=== PATIENT | male | born 1970 | race Caucasian/White ===

== ENCOUNTER 2022-02-13 01:45 | Inpatient (IN) | payer MEDICAID ==
[~2022-02-13] VITALS: Ht 182.9 cm; Wt 99.4 kg
[2022-02-13 01:55] VITALS: BP_SYST 156
--- NOTE | 2022-02-13 01:55 | NUR ---
Patient triaged and placed in waiting room. VSS and patient appears in no acute distress at this time. Awaiting available bed, and MD notified of need for MSE.
--- NOTE | 2022-02-13 02:53 | NUR ---
Patient to ER bed 8 to gown for evaluation. Side rails up. Report given to JUDIT SIFUENTES(REG).
--- NOTE | 2022-02-13 03:13 | NUR ---
ER AT at bedside examining patient
[2022-02-13] MEDS ORDERED: PIPERACILLIN/TAZO 3.375 GM in D5W 50 ML IV ONE (03:45)
[2022-02-13] MEDS ORDERED: VANCOMYCIN HCL 1,000 MG in D5W 250 ML IV ONE (03:45)
[2022-02-13] MEDS ORDERED: PIPERACILLIN/TAZOBACTAM 3.375 GM/VIAL (ZOSYN) IV ONE (04:22)
[2022-02-13] MEDS ORDERED: VANCOMYCIN HCL 1000 MG/VIAL IV ONE (04:22)
[2022-02-13 04:28] LABS: BASOPHILS # (AUTO) 0.1 K/uL (0.0-0.2); BASOPHILS % (AUTO) 1.1 % (0.0-2.0); EOSINOPHILS # (AUTO) 0.4 K/uL (0.0-0.4); EOSINOPHILS % (AUTO) 3.3 % (0.0-4.0); HEMATOCRIT 33.8 % (36-54); HEMOGLOBIN 11.3 g/dL (14.0-18.0); LYMPHOCYTES # (AUTO) 0.9 K/uL (1.0-5.5); LYMPHOCYTES % (AUTO) 6.5 % (20.5-51.5); MEAN CORPUSCULAR HEMOGLOBIN 24 pg (27-31); MEAN CORPUSCULAR HGB CONC 33 % (32-36); MEAN CORPUSCULAR VOLUME 73 fL (79.0-98.0); MONOCYTES # (AUTO) 1.1 K/uL (0.0-1.0); MONOCYTES % (AUTO) 7.9 % (1.7-9.3); NEUTROPHILS # (AUTO) 10.9 K/uL (1.8-7.7); NEUTROPHILS % (AUTO) 81.2 % (40.0-70.0); PLATELET COUNT (AUTO) 316 K/uL (130-430); RED BLOOD CELL COUNT(AUTO) 4.64 MIL/uL (4.2-6.2); RED CELL DISTRIBUTION WIDTH 18.3 % (9.0-15.0); WHITE BLOOD COUNT (AUTO) 13.4 K/uL (4.8-10.8)
[2022-02-13 04:39] LABS: ANION GAP 9 (5-15); CHLORIDE 96 mmol/L (98-107); CREATININE 2.01 mg/dL (0.55-1.30); GLUCOSE 185 mg/dL (70-99); UREA NITROGEN, BLOOD 42 mg/dL (8-21)
[2022-02-13 04:42] LABS: GFR AFRICAN AMERICAN 45 mL/min (>90)
[2022-02-13 04:46] LABS: INR 1.2 (0.80-1.20); PROTHROMBIN TIME 12.6 SECS (9.5-12.5)
[2022-02-13 04:49] LABS: ALANINE AMINOTRANSFERASE 29 U/L (12-78); ALBUMIN 1.7 g/dL (3.4-4.8); ASPARTATE AMINOTRANSFERASE 53 U/L (10-37); TOTAL BILIRUBIN 0.5 mg/dL (0.0-1.0)
[2022-02-13 05:49] LABS: ERYTHROCYTE SEDIMENTATION RATE 96 MM/HR (0-15)
--- NOTE | 2022-02-13 07:24 | NUR ---
Report given from Norma SIFUENTES. RN states Mendel martinez completed. Pt is aaox4 CC mechanical fall, generalized pain. Pt has foot amputation with serous drainage and pink granulation. Dry and flaky skin. Swelling to right leg. Left leg pedal pulse present <3 sec cap refill. Pt states homelessness without resources for wound care. Will notify
--- NOTE | 2022-02-13 07:32 | NUR ---
Urine specimen collected and analyzed in ER. Results given to ER .
--- NOTE | 2022-02-13 07:32 | NUR ---
Unit Sec. contacting [facility] for admission auth.
[2022-02-13 07:59] LABS: BILIRUBIN,URINE 1+ (NEGATIVE); BLOOD, URINE 3+ (NEGATIVE); CLARITY/URINE SL CLOUDY (CLEAR); COLOR,URINE YELLOW (YELLOW); GLUCOSE,URINE TRACE (NEGATIVE); KETONES,URINE NEGATIVE (NEGATIVE); LEUKOCYTE ESTERASE ,URINE NEGATIVE (NEGATIVE); NITRITE, URINE NEGATIVE (NEGATIVE); PH,URINE 5.5 (5.0-8.0); PROTEIN URINE 3+ (NEGATIVE)
--- NOTE | 2022-02-13 08:02 | NUR ---
PT with industrial technology education teacher bed side doppler of lower bilateral extremities.
[2022-02-13 08:22] LABS: BARBITURATE, URINE NEGATIVE (NEG <=200); BENZODIAZEPINE, URINE NEGATIVE (NEG <=150); CANNABINOID, URINE NEGATIVE (NEG <=50); COCAINE, URINE NEGATIVE (NEG <=150); METHAMPHETAMINES SCREEN,URINE POSITIVE (NEG <=500); OPIATE, URINE NEGATIVE (NEG <=100); PHENCYCLIDINE SCREEN,URINE NEGATIVE (NEG <=25); UR TRICYCLIC ANTIDEPRESSANTS NEGATIVE (NEG <=300); URINE AMPHETAMINE POSITIVE (NEG <=500); URINE METHADONE NEGATIVE (NEG <=200); URINE OXYCODONE SCREEN NEGATIVE (NEG <=100); URINE PROPOXYPHENE SCREEN NEGATIVE (NEG <=300)
[2022-02-13 08:30] LABS: BACTERIA,URINE RARE /HPF (None Seen); WBC,URINE 0-3 /HPF (0-3)
[2022-02-13 08:31] LABS: FINE GRANULAR CASTS,URINE 0-10 /LPF (None Seen); MUCUS,URINE 1+ /LPF (None Seen)
--- NOTE | 2022-02-13 09:37 | NUR ---
Wound cleansed with Normal Saline and wrapped with Kerlix by NIDHI Barney.
--- NOTE | 2022-02-13 10:05 | NUR ---
Admit bed requested Patient will be admitted to care of . Admitted to Med Surg unit. Diagnosis Osteomyelitis Inpatient (Yes or No) y Observation (Yes or No) n Orientation concerns or request close to nursing station (Yes or No) n Covid Status neg On vent or bipap no Isolation requirements n Needs a sitter n From Home (Yes or if No enter name of facility) Stated homeless Requires Dialysis (Yes or No) n Med Rec Completed (Yes of No) y
[2022-02-13] MEDS ORDERED: ACETAMINOPHEN 325 MG TABLET PO PRN (10:30)
[2022-02-13] MEDS ORDERED: ONDANSETRON HCL 4 MG/2 ML VIAL IVP PRN (10:30)
[2022-02-13] MEDS ORDERED: MUPIROCIN 2% TOPICAL OINTMENT 22 GM NS PRN (10:30)
[2022-02-13] MEDS ORDERED: NALOXONE HCL 0.4 MG/ML AMP (NARCAN) IVP PRN ×2 (10:30)
[2022-02-13] MEDS ORDERED: POTASSIUM CHLORIDE 20 MEQ TAB.PRT.SR PO PRN (10:30)
[2022-02-13] MEDS ORDERED: MAGNESIUM SULFATE 50 ML IV PRN (10:30)
--- NOTE | 2022-02-13 10:30 | NUR ---
Pt aaox4, informed of DX osteomyelits and admission from Dr. Auguste. Pt provided turkey sandwich and resting without complaint.
[2022-02-13] MEDS ORDERED: GLUCOSE (DEXTROSE) ORAL GEL -Adults PO PRN (11:15)
[2022-02-13] MEDS ORDERED: DEXTROSE 50%-WATER 50 ML DISP.SYRIN IVP PRN (11:15)
[2022-02-13] MEDS ORDERED: D5W 1,000 ML IV PRN (11:15)
[2022-02-13] MEDS ORDERED: ASPI-524 (11:44)
[2022-02-13] MEDS ORDERED: FURO-149 (11:45)
[2022-02-13] MEDS ORDERED: CARV12.548 (11:45)
[2022-02-13] MEDS ORDERED: FAMO20TA8 PO (11:45)
[2022-02-13] MEDS ORDERED: GLIP10TA (11:45)
--- NOTE | 2022-02-13 11:45 | NUR ---
Belongings list and Medication reconciled.
--- NOTE | 2022-02-13 12:24 | NUR ---
Patient will be admitted to care of MD Auguste. Admitted to MedSurg unit. Will go to room 130B. Belongings list completed. Complete and up to date summary report printed. SBAR report given to BEAR Remy on telephone with opportunity for questions. NIDHI Arita to transfer [facility].
[2022-02-13] MEDS ORDERED: ASPI-859 PO (12:55)
[2022-02-13] MEDS ORDERED: GLIP10TA11 PO (12:55)
[2022-02-13] MEDS ORDERED: CARV25TA55 PO (13:15)
[2022-02-13 13:45] VITALS: BP_SYST 120
--- NOTE | 2022-02-13 13:46 | NUR ---
Upon initial assessment PT C/O left arm pain. Observed limited movement to L arm. Pt C/O increased left arm pain with movement. L radial pulse weak and faint when compared to R radial pulse. Pt stated he has fallen a couple times within the last few days. Made Dr Auguste aware. New order received.Olga with ultrasound made aware of STAT venous and arterial doppler of MARTHA.
[2022-02-13] MEDS: CLINDAMYCIN 600 MG in D5W 50 ML IV SCH ×2 (14:00→20:00)
--- NOTE | 2022-02-13 15:55 | NUR ---
CONSULTATION REASON FOR CONSULT: R FOOT OSTEOMYLELITIS CONSULTING PHYSICIAN: LAKISHA ORDERED BY: DAISY SPOKE WITH KEITH [phone]
--- NOTE | 2022-02-13 17:30 | NUR ---
ASSESSED BG 245
[2022-02-13] MEDS: NACL 0.9% 1,000 ML IV SCH ×2 (17:38→20:30)
[2022-02-13] MEDS: DAPTOmycin 500 MG in NS 50 ML IV SCH (17:39)
[2022-02-13 20:00] VITALS: BP_SYST 125
[2022-02-13] MEDS: LACTOBACILLUS RHAMNOSUS GG 1 CAP CAPSULE PO SCH (21:00)
[2022-02-13] MEDS ORDERED: HEPARIN SODIUM,PORCINE 5,000 UNITS/ML VIAL SUBCUT SCH (21:00)
[2022-02-13] MEDS: INSULIN REGULAR, HUMAN 100 UNITS/ML, 3 ML VIAL (humuLIN R) SUBCUT PRN (23:16)
[2022-02-14] VITALS (7 sets, daily range): BP systolic 96–137
[2022-02-14] MEDS: CLINDAMYCIN 600 MG in D5W 50 ML IV SCH ×4 (02:06→21:32)
[2022-02-14] MEDS: MORPHINE 2 MG/ML INJ. SYRINGE IVP PRN ×3 (02:07→21:48)
[2022-02-14] MEDS: NACL 0.9% 1,000 ML IV SCH ×3 (05:51→09:15)
[2022-02-14 06:37] LABS: CALCIUM 7.6 mg/dL (8.4-11.0); CREATININE 1.5 mg/dL (0.55-1.30)
--- NOTE | 2022-02-14 06:45 | NUR ---
DR. HILTON NOTIFIED OF PATIENT'S US DOPPLER RESULT OF LEFT UPPER WHICH SHOWED OCCLUSIVE DVT ON THE CEPHALIC VEIN. DR. MIRANDA NOTIFIED, NO ORDERS BECAUSE HE SAID HE IS COMING TO SEE THE PATIENT SOON.
[2022-02-14 07:07] LABS: BASOPHILS # (AUTO) 0.1 K/uL (0.0-0.2); BASOPHILS % (AUTO) 0.5 % (0.0-2.0); EOSINOPHILS # (AUTO) 0.3 K/uL (0.0-0.4); EOSINOPHILS % (AUTO) 3.2 % (0.0-4.0); HEMATOCRIT 33.1 % (36-54); HEMOGLOBIN 10.8 g/dL (14.0-18.0); LYMPHOCYTES # (AUTO) 1.4 K/uL (1.0-5.5); LYMPHOCYTES % (AUTO) 13.9 % (20.5-51.5); MEAN CORPUSCULAR HEMOGLOBIN 24 pg (27-31); MEAN CORPUSCULAR HGB CONC 33 % (32-36); MEAN CORPUSCULAR VOLUME 73 fL (79.0-98.0); MONOCYTES % (AUTO) 9.3 % (1.7-9.3); NEUTROPHILS # (AUTO) 7.6 K/uL (1.8-7.7); NEUTROPHILS % (AUTO) 73.1 % (40.0-70.0); PLATELET COUNT (AUTO) 335 K/uL (130-430); RED BLOOD CELL COUNT(AUTO) 4.52 MIL/uL (4.2-6.2); RED CELL DISTRIBUTION WIDTH 18.4 % (9.0-15.0); WHITE BLOOD COUNT (AUTO) 10.3 K/uL (4.8-10.8)
[2022-02-14] MEDS ORDERED: *LOVENOX 1MG/KG Q12H/PHARMACY XX PRN (07:45)
[2022-02-14] MEDS: FUROSEMIDE 40 MG/4 ML VIAL IVP SCH (09:12)
[2022-02-14] MEDS: ENOXAPARIN SODIUM 100 MG/ML SYRINGE SUBCUT SCH ×2 (09:12→21:33)
[2022-02-14] MEDS: LACTOBACILLUS RHAMNOSUS GG 1 CAP CAPSULE PO SCH ×2 (09:13→21:33)
[2022-02-14] MEDS: ASPIRIN 81 MG TABLET(ECOTRIN) PO SCH (09:13)
[2022-02-14] MEDS: CARVEDILOL 25 MG TABLET (COREG) PO SCH (09:13)
--- NOTE | 2022-02-14 10:00 | NUR ---
CONSULTATION: REASON FOR CONSULT: CHF CONSULTING PHYSICIAN: EDMUNDO ORDERED BY: EDMUDNO SPOKE TO DR WYATT HIMSELF AND IS AWARE OF THE CONSULT
--- NOTE | 2022-02-14 12:35 | NUR ---
ANSWERING SERVICE TELEPHONE OPERATOR ACSW Rubia responded to 2 generated Social Service referrals for "pt is homeless" and "pt needs social problems specialist referral'. ACSW Rubia met with patient at bedside. ACSW completed introductions, reason for referral and provided business card. Patient appeared to be in pain, but requested for contact to continue. Housing- Patient disclosed homeless for over 6 years. When ACSW inquired into his night time residence, patient stated "i just sleep out in the streets". ACSW made efforts to assess for patient's ability/desire to access shelters or motels, but patient did not answer. Substance Use- Patient disclosed selling and using meth. ACSW made attempts to explore substance use further, but patient would not answer at this time. Social- Patient is x6 years, following 27 year long marriage to Kat Lu . Address depicted on facesheet is his mailing address and also previous home he shared with his ex-. Patient shared he has 3 children, Cj his son is listed as his contact. Patient did not want to discuss this further. Resources- Patient disclosed receiving advocacy services related to his SSI from "[employer]" and his worker is Monica. He was unable to provide contact information for this person at this time, but expressed concern due to having to provide her updates of his current admission. ACSW provided patient brief explanation of available resources and programs that may provide support to patient. ACSW also briefly explored the negative impact of substance abuse on mental and physical health as well as legal ramifications. ACSW encouraged patient to explore supportive programs to address substance abuse. Patient also requested to be transferred to [facility] if needing SNF placement. ACSW will continue to be available as needed
[2022-02-14] MEDS: INSULIN REGULAR, HUMAN 100 UNITS/ML, 3 ML VIAL (humuLIN R) SUBCUT PRN ×3 (13:26→21:46)
[2022-02-14] MEDS: DAPTOmycin 500 MG in NS 50 ML IV SCH (16:00)
--- NOTE | 2022-02-14 19:45 | NUR ---
Opening note Received patient awake, resting in bed. No distress and nonlabored breathing on room air. He is watching. t.v. IVF is off, though line is connected to IV on RAC. He requested ice chips. Safety precautions in place and call light w/in reach. Updated board.
--- NOTE | 2022-02-14 21:36 | NUR ---
Meds, Fingerstick Scheduled meds administered. Reviewed side effects, Leightonx; He listened though did not have further questions; he was not patient and said " just hurry up, I'm cold, in pain". I replied I can give pain med. Fingerstick BS result was 187 mg/dL and covered per sliding scale. Patient requested snacks and ice chips; Provided one cup of ice chips and no-sugar vanilla pudding.
--- NOTE | 2022-02-14 21:50 | NUR ---
Restroom, BM, new linen. Patient reports he wants to walk to restroom for BM. I offered bedside commode and he got upset and refused. I asked if he needs a walker and got upset. He said his left shoulder/arm hurts and he can't hold walker. He said he would use a wheel chair and I provided assistance with wheel chair. He washed hands and waited on chair while I changed the bed linen. He returned to bed, resumed IVF. Safety precautions in place and call light w/in reach.
[2022-02-15] VITALS: BP_SYST 103
[2022-02-15] MEDS: CLINDAMYCIN 600 MG in D5W 50 ML IV SCH ×4 (02:29→21:36)
[2022-02-15] MEDS: MORPHINE 2 MG/ML INJ. SYRINGE IVP PRN ×2 (02:34→21:33)
[2022-02-15 02:46] VITALS: BP_SYST 101
--- NOTE | 2022-02-15 03:10 | NUR ---
Wound care, wound culture, pictures Patient was pre-medicated with Morphine 30 minutes prior to wound care. Wound care provide to right foot. Wound cleansed with normal saline, then swabbed for wound culture collection. Wound culture will be sent to lab. Wound was covered with non-adhesive foam dressing and secured with Kerlix. Pictures were taken. Overall patient was comfortable and tolerated procedure.
[2022-02-15] MEDS: NACL 0.9% 1,000 ML IV SCH (04:00)
--- NOTE | 2022-02-15 04:05 | NUR ---
Refusing IVF Patient does not want IVF, he wants it stopped. IV is patent and saline locked.
--- NOTE | 2022-02-15 06:33 | NUR ---
closing note, fingerstick Patient is resting, eyes closed, calm, no moaning nor facial grimacing. No distress. Momentarily awakened for fingerstick; obtained result of 142 mg/dL. Requesting ice chips provided 1 cup. Needs met throughout shift, safety precautions in place, call light w/in reach. Will endorse care.
[2022-02-15 06:37] LABS: BASOPHILS % (AUTO) 0.4 % (0.0-2.0); EOSINOPHILS # (AUTO) 0.4 K/uL (0.0-0.4); EOSINOPHILS % (AUTO) 4.6 % (0.0-4.0); HEMATOCRIT 30.6 % (36-54); HEMOGLOBIN 10.2 g/dL (14.0-18.0); LYMPHOCYTES # (AUTO) 1.4 K/uL (1.0-5.5); LYMPHOCYTES % (AUTO) 14.8 % (20.5-51.5); MEAN CORPUSCULAR HEMOGLOBIN 24 pg (27-31); MEAN CORPUSCULAR HGB CONC 33 % (32-36); MEAN CORPUSCULAR VOLUME 73 fL (79.0-98.0); MONOCYTES # (AUTO) 0.7 K/uL (0.0-1.0); MONOCYTES % (AUTO) 7.1 % (1.7-9.3); NEUTROPHILS # (AUTO) 6.7 K/uL (1.8-7.7); NEUTROPHILS % (AUTO) 73.1 % (40.0-70.0); PLATELET COUNT (AUTO) 368 K/uL (130-430); RED BLOOD CELL COUNT(AUTO) 4.22 MIL/uL (4.2-6.2); RED CELL DISTRIBUTION WIDTH 18.6 % (9.0-15.0); WHITE BLOOD COUNT (AUTO) 9.2 K/uL (4.8-10.8)
[2022-02-15 08:41] LABS: CALCIUM 8.2 mg/dL (8.4-11.0); CREATININE 1.8 mg/dL (0.55-1.30)
[2022-02-15] MEDS: LACTOBACILLUS RHAMNOSUS GG 1 CAP CAPSULE PO SCH ×2 (08:58→21:50)
[2022-02-15] MEDS: CARVEDILOL 25 MG TABLET (COREG) PO SCH (08:58)
[2022-02-15] MEDS: FUROSEMIDE 40 MG/4 ML VIAL IVP SCH (08:59)
[2022-02-15] MEDS: ENOXAPARIN SODIUM 100 MG/ML SYRINGE SUBCUT SCH ×2 (10:13→21:50)
[2022-02-15] MEDS: ASPIRIN 81 MG TABLET(ECOTRIN) PO SCH (10:13)
[2022-02-15] MEDS: INSULIN REGULAR, HUMAN 100 UNITS/ML, 3 ML VIAL (humuLIN R) SUBCUT PRN ×3 (12:31→21:44)
[2022-02-15 12:39] VITALS: BP_SYST 104
[2022-02-15 16:28] VITALS: BP_SYST 100
[2022-02-15] MEDS: DAPTOmycin 500 MG in NS 50 ML IV SCH (17:21)
[2022-02-15 19:00] VITALS: BP_SYST 132
--- NOTE | 2022-02-15 19:04 | NUR ---
Dietitian Recommendations * CCHO, Renal diet, Glucerna TID, Virgil BID * Recommend Renal MVI, Vit C 100mg, Zinc Sulfate * Recommend double portions of protein and non-starchy vegetables Please refer to nutrition assessment for details, thanks! CC, MPH, RDN
[2022-02-15 20:00] VITALS: BP_SYST 132
[2022-02-15] MEDS: CEFEPIME 2 GM in D5W 100 ML IV SCH (21:37)
[2022-02-15] MEDS: ZOLPIDEM TARTRATE 5 MG TABLET PO PRN (21:55)
[2022-02-16 00:35] VITALS: BP_SYST 102
[2022-02-16] MEDS: MORPHINE 2 MG/ML INJ. SYRINGE IVP PRN ×3 (02:11→20:51)
[2022-02-16] MEDS: CLINDAMYCIN 600 MG in D5W 50 ML IV SCH ×4 (02:12→20:32)
[2022-02-16 06:11] LABS: BASOPHILS # (AUTO) 0.1 K/uL (0.0-0.2); BASOPHILS % (AUTO) 1.4 % (0.0-2.0); EOSINOPHILS # (AUTO) 0.4 K/uL (0.0-0.4); EOSINOPHILS % (AUTO) 4.5 % (0.0-4.0); HEMATOCRIT 31.5 % (36-54); HEMOGLOBIN 10.5 g/dL (14.0-18.0); LYMPHOCYTES # (AUTO) 1.7 K/uL (1.0-5.5); LYMPHOCYTES % (AUTO) 17.1 % (20.5-51.5); MEAN CORPUSCULAR HEMOGLOBIN 24 pg (27-31); MEAN CORPUSCULAR HGB CONC 33 % (32-36); MEAN CORPUSCULAR VOLUME 73 fL (79.0-98.0); MONOCYTES # (AUTO) 0.7 K/uL (0.0-1.0); MONOCYTES % (AUTO) 7.4 % (1.7-9.3); NEUTROPHILS # (AUTO) 6.8 K/uL (1.8-7.7); PLATELET COUNT (AUTO) 430 K/uL (130-430); RED BLOOD CELL COUNT(AUTO) 4.32 MIL/uL (4.2-6.2); RED CELL DISTRIBUTION WIDTH 18.9 % (9.0-15.0); WHITE BLOOD COUNT (AUTO) 9.7 K/uL (4.8-10.8)
[2022-02-16] MEDS: INSULIN REGULAR, HUMAN 100 UNITS/ML, 3 ML VIAL (humuLIN R) SUBCUT PRN ×4 (06:13→20:53)
[2022-02-16 06:31] LABS: CALCIUM 8.5 mg/dL (8.4-11.0); CREATININE 1.74 mg/dL (0.55-1.30)
[2022-02-16 08:02] VITALS: BP_SYST 103
[2022-02-16] MEDS: CEFEPIME 2 GM in D5W 100 ML IV SCH ×2 (08:31→20:32)
[2022-02-16] MEDS: FUROSEMIDE 40 MG/4 ML VIAL IVP SCH (08:34)
[2022-02-16] MEDS: ENOXAPARIN SODIUM 100 MG/ML SYRINGE SUBCUT SCH ×2 (08:36→20:34)
[2022-02-16] MEDS: ASPIRIN 81 MG TABLET(ECOTRIN) PO SCH (08:39)
[2022-02-16] MEDS: LACTOBACILLUS RHAMNOSUS GG 1 CAP CAPSULE PO SCH ×2 (08:41→20:34)
[2022-02-16] MEDS: CARVEDILOL 25 MG TABLET (COREG) PO SCH (08:41)
[2022-02-16] MEDS: DOCUSATE SODIUM 100 MG CAPSULE PO PRN (08:42)
[2022-02-16 12:01] LABS: NEUTROPHILS % (AUTO) 69.6 % (40.0-70.0)
--- NOTE | 2022-02-16 14:11 | NUR ---
WOUND EVALUATION: Wound Consult received from Dr. Auguste. Thank you, Dr. Auguste, for the consult. Patient received in a Gilbert Bed with an Isoflex CATALINA mattress, awake, alert, and oriented. Patient is able to turn in bed independently. Miller Score is an 18. Past Medical History: Diabetes Mellitus, CHF, Hypertension, extensive polysubstance abuse, Transmetatarsal Amputation of all 5 toes about 6 months ago in a local hospital, history of heavy alcohol abuse but he quit few years ago. Recent Labs: WBC 9.7, RBC 4.32, hemoglobin 10.5, hematocrit 31.5, ESR 96, sodium 124, chloride 94, BUN 39, creatinine 1.74, GFR 44, glucose 183, POC glucose 271, magnesium 2.3, albumin 1.7, PT 12.6, PTT 37.7. Microbiology: Blood culture results x2 in progress. Wound culture results in progress. Urine culture results negative. Intrinsic factors that delay wound healing: CHF, extensive polysubstance abuse, vascular insufficiency, severe hypoalbuminemia, moderate malnutrition, Vasomotor Nephropathy, Right Foot Osteomyelitis. Extrinsic factors that delay wound healing: Decreased mobility. Bilateral lower extremities are cool to the touch, have firm edema with dark discoloration and areas of dry scaly skin throughout. Per assessment by Dr. Auguste: * Sepsis. * Right foot osteomyelitis. * Polysubstance abuse. * Moderate malnutrition. * Acute over chronic systolic over diastolic heart failure. * Urinary tract infection. * Medical noncompliance. * Left cephalic vein thrombus. * Hypertension. * History of diabetes mellitus. * Vasomotor nephropathy. Per assessment by Dr. Rodriguez: 1. Right foot osteomyelitis. 2. Polysubstance abuse. 3. Moderate malnutrition. 4. Acute over chronic systolic over diastolic heart failure. 5. Urinary tract infection. 6.Medical noncompliance. 7. diabetes mellitus. Wound Assessment: 1. Right Superior/Anterior/Posterior Foot (Transmetatarsal Amputation site): Acute on Chronic Surgical Wound with possible Osteomyelitis, present on admission. Wound bed has 55% dull pink tissue, 25% black slough, 15% yellow slough, 5% red tissue. Foul odor, small yellow purulent drainage. Kristina-wound intact. Extremity superior to wound and foot have calor. No maggots seen in wound. Wound measures 10.1 cm x 9.5 cm x 1.1 cm. Recommend: Cleanse wound with normal saline. Apply SurePrep to kristina-wound. Apply Venelex ointment to wound bed. Pack areas of and wound with 1/4 inch iodoform packing strip. Cover with nonadhesive foam dressings. Perform wound care daily, and as needed for dressing soiling or dislodgement. 2. Right plantar foot, posterior to Transmetatarsal Amputation site: Area of yellow/brown eschar and dry scaly skin, present on admission. No odor, no drainage. Periwound intact. Site measures 9.0 cm x 1.6 cm. Recommend: [place] site with Betadine. Allow Betadine to air dry. Cover site with Dada wrap from dressing in site 1. Perform site care daily and as needed for dressing soiling or dislodgment. Also recommend: Encourage and assist patient as needed with repositioning every 2 hours with pillow support and off-load pressure areas with pillows for pressure re-distribution. Offload, elevate and float bilateral heels with pillows. Perform skin care and monitor skin integrity Q shift. Recommend surgical consult.
--- NOTE | 2022-02-16 15:17 | NUR ---
CONSULTATION PAGED REASON FOR CONSULTATION:WPUND (DIABETIC /SURGICAL AMPUTATION)POSSIBLE OSTEOMY WAS CONSULT CALLED?Y PERSON WHO WAS NOTIFIED:BRIGETTE CONSULTING PHYSICIAN:DERICK MENDOZA RETAIL AND RESTAURANT SPECIALTY:SURGEON RETAIL AND RESTAURANT PHONE NUMBER:[phone] REQUESTING PHYSICIAN:DR.[facility]
[2022-02-16] MEDS: DAPTOmycin 500 MG in NS 50 ML IV SCH (15:25)
[2022-02-16 16:13] VITALS: BP_SYST 122
--- NOTE | 2022-02-16 16:44 | NUR ---
0800: DRESSING RIGHT FOOT W/O ANY DISCHARGE OR BLEEDING NOTED. WILL CONTINUE TO MONITOR PATIENT. 1200: TOLERATED CURRENT IV ANTIBIOTIC WELL NO S/S OF ANY ADVERSE REACTION NOTED. 1600: STARTED ON NEW IV ANTIBIOTIC AND MEDICATED FOR PAIN. WILL REASSESS PATIENT W/IN THE NEXT HOUR.
--- NOTE | 2022-02-16 19:38 | NUR ---
1900: CONTINUE TO BE FREE OF ANY ADVERSE REACTION FROM IV ANTIBIOTIC. DRESSING RIGHT STUMP APPLIED BY WOUND CARE NURSE BEAR CAMPOS REMAIN INTACT W/O ANY DISCHARGE NOTED. ENDORSED PATIENT TO PM SHIFT NURSE
[2022-02-16 20:00] VITALS: BP_SYST 117
[2022-02-16] MEDS: ZOLPIDEM TARTRATE 5 MG TABLET PO PRN (20:48)
[2022-02-16] MEDS: LORazepam 2 MG/ML VIAL IVP PRN (20:50)
[2022-02-16] MEDS: NACL 0.9% 1,000 ML IV SCH ×2 (20:54)
--- NOTE | 2022-02-16 21:17 | NUR ---
PATIENT YELLING AND SCREAMING - SITTING AT THE EDGE OF BED, REFUSED HOOKER MACHINE TENDER AND NURSE TO CHANGE HIS CLOTH AND DIRTY LINEN, VS TAKEN , PATIENT START YELLING AGAIN ,SAYING "F" WORDS, ATIVAN FOR AGITATION AND MORPHINE FOR HIS SHOULDER PAIN , HE PEE ON THE FLOOR, PAGED HOUSE KEEPER . OFFER THE WARM BLANKET. IVPB GIVEN ORDERED.
[2022-02-16 23:35] VITALS: BP_SYST 124
[2022-02-17] MEDS: CLINDAMYCIN 600 MG in D5W 50 ML IV SCH ×3 (01:22→09:01)
--- NOTE | 2022-02-17 04:00 | NUR ---
PATIENT PEE ON THE FLOOR AND WET THE WHOLE BED, CHANGED ALL LINEN AND GOWN , BED BATH GIVEN , CALL LIGHT WITHIN REACH.
[2022-02-17 05:41] LABS: BASOPHILS # (AUTO) 0.1 K/uL (0.0-0.2); BASOPHILS % (AUTO) 1.2 % (0.0-2.0); EOSINOPHILS # (AUTO) 0.6 K/uL (0.0-0.4); EOSINOPHILS % (AUTO) 6.2 % (0.0-4.0); HEMOGLOBIN 10.6 g/dL (14.0-18.0); LYMPHOCYTES # (AUTO) 1.1 K/uL (1.0-5.5); LYMPHOCYTES % (AUTO) 10.9 % (20.5-51.5); MEAN CORPUSCULAR HEMOGLOBIN 24 pg (27-31); MEAN CORPUSCULAR HGB CONC 33 % (32-36); MEAN CORPUSCULAR VOLUME 73 fL (79.0-98.0); MONOCYTES # (AUTO) 0.5 K/uL (0.0-1.0); MONOCYTES % (AUTO) 5.2 % (1.7-9.3); NEUTROPHILS # (AUTO) 7.8 K/uL (1.8-7.7); NEUTROPHILS % (AUTO) 76.5 % (40.0-70.0); PLATELET COUNT (AUTO) 487 K/uL (130-430); RED BLOOD CELL COUNT(AUTO) 4.37 MIL/uL (4.2-6.2); WHITE BLOOD COUNT (AUTO) 10.2 K/uL (4.8-10.8)
[2022-02-17] MEDS: INSULIN REGULAR, HUMAN 100 UNITS/ML, 3 ML VIAL (humuLIN R) SUBCUT PRN ×3 (07:03→21:36)
[2022-02-17 07:05] LABS: ALBUMIN 1.4 g/dL (3.4-4.8); CALCIUM 8.2 mg/dL (8.4-11.0); CREATININE 1.6 mg/dL (0.55-1.30); TOTAL BILIRUBIN 0.6 mg/dL (0.0-1.0)
[2022-02-17 08:00] VITALS: BP_SYST 132
--- NOTE | 2022-02-17 08:30 | NUR ---
AOX4 NAD NOTED.PT FOUND STANDING AT BEDSIDE. PT STATED HE URINATED ON THE FLOOR. PT SAT ON BED. NICHELLE ISAAC PROVIDED URINAL. PLACED URINAL AT BEDSIDE WITHIN PT REACH. CALL PLACED WITHIN PT REACH. PT ENCOURAGED TO CALL FOR ASSISTANCE.
[2022-02-17] MEDS: LACTOBACILLUS RHAMNOSUS GG 1 CAP CAPSULE PO SCH ×2 (09:00→21:33)
[2022-02-17] MEDS: ENOXAPARIN SODIUM 100 MG/ML SYRINGE SUBCUT SCH ×2 (09:00→21:32)
[2022-02-17] MEDS: ASPIRIN 81 MG TABLET(ECOTRIN) PO SCH (09:00)
[2022-02-17] MEDS: FUROSEMIDE 40 MG/4 ML VIAL IVP SCH (09:02)
[2022-02-17] MEDS: CARVEDILOL 25 MG TABLET (COREG) PO SCH (09:02)
[2022-02-17] MEDS: CEFEPIME 2 GM in D5W 100 ML IV SCH ×2 (09:05→21:30)
[2022-02-17] MEDS: BALSAM PERU/CASTOR OIL 56.7 GM OINT...G. TP SCH (09:05)
--- NOTE | 2022-02-17 11:00 | NUR ---
RESPONDED TO BED ALARM. OBSERVED PT SLIDE OFF BED SLOWLY LOWERING HIMSELF TO THE FLOOR ON R KNEE. NO DEFORMITY NOTED. PT DENIED PAIN. STAFF ASSISTED PT TO BED. PT AGITATED YELLING AND CURSING STAFF.NOTIFIED CHARGE NURSE. BED ALARM ACTIVATED. FREQUENT MONITORING NOTED.
[2022-02-17] MEDS: LORazepam 2 MG/ML VIAL IVP PRN ×2 (11:17→15:31)
[2022-02-17 12:00] VITALS: BP_SYST 128
--- NOTE | 2022-02-17 12:00 | NUR ---
SCHEDULED BG CHECK ASSESSED 207. PT ASLEEP, VERY DROWSY WHEN AWAKENED. DID NOT ADMINISTER INSULIN.
--- NOTE | 2022-02-17 12:40 | NUR ---
MANAGER WELLNESS ACSW Rubia completed and faxed applications for the following programs to address both medical and housing issues; - [facility] P: F: - [facility] F: ACSW Rubia will continue to be available as needed
--- NOTE | 2022-02-17 13:16 | NUR ---
PT RESTING QUIETLY WITH EYES CLOSED.NAD NOTED. BED ALARM ACTIVE. BED IN LOWEST POSITION CALL LIGHT WITH REACH. FREQUENT ROUNDING NOTED.
--- NOTE | 2022-02-17 14:16 | NUR ---
RESPONDED TO BED ALARM. PT IS DROWSY ORIENTED TO N. ATTEMPTED TO GET OUT OF BED. PT FOUND INCONTINENT OF URINE. PT EASILY REDIRECTED. CHARGE NURSE PONCHO AT BEDSIDE ASSISTED ME WITH REPOSITIONING AND LINEN CHANGE. PLACED DIAPER ON PATIENT. CALL LIGHT WITHIN REACH. ENCOURAGED PT TO CALL FOR ASSISTANCE. OFFERED PATIENT LUNCH TRAY.PT DID NOT EAT. PT WENT BACK TO SLEEP. BED IN LOWEST POSITION. FREQUENT ROUNDING REQUIRED. Addendum: 02/17/22 at 1429 by [place] Gianluca, BEAR SIFUENTES CORRECTION TO NOTE.RESPONDED TO BED ALARM. PT IS DROWSY ORIENTED TO NAME AND EVENT. NO ACUTE DISTRESS NOTED.
[2022-02-17] MEDS: DAPTOmycin 500 MG in NS 50 ML IV SCH (15:36)
[2022-02-17 16:00] VITALS: BP_SYST 130
[2022-02-17] MEDS: NACL 0.9% 1,000 ML IV SCH (17:21)
--- NOTE | 2022-02-17 17:21 | NUR ---
Nutrition F/U Admitting Diagnosis Right foot myelitis Reviewed Pertinent Medical/Surgical Hx Medical Record, Patient Medical History Comment: Per EMR: T2DM, CHF, HTN, substance abuse, arthritis, R foot partial amputation July 2021, angioplasty for PVD, medical noncompliance, homeless. Pt admitted for R foot swelling/pain, Dx of sepsis, acute over chronic HF. Per RN report, pt declined BKA however MD planning to move forward with Sx debridement. Subjective Information Nutrition Consult received 02/16/22 1428 d/t Diabetic/Surgical amputation, poss osteomy. Payable Representative rounded to pt bedside, pt asleep at time of visit. CBW 213 lbs via bedscale -- stable since last visit. Payable Representative spoke w/ RN who stated that pt has good appetite, eats 100% of meals and "cleans the plate", however RN reports that pt still feels hungry after meals and requests double portions of food. Payable Representative informed RN that pt should already be receiving double portion of proteins/non-starchy vegetables on meal trays; FNS staff can also provide diabetic-friendly snacks between meals per pt request. Per EMR, average PO intake of 53.6% x 7 meals - worsening. RN attests that pt has no issues w/ N/V/C/D today, some issues w/ chewing but unsure of cause -- suspected poor dentition d/t lack of oral care d/t homelessness. RN attests that pt is tolerating current diet, but pt may benefit from softer foods on tray. LBM 02/17/22 -- RN attests to pt urinating/defecating on floor earlier today. Current Diet Order/Nutrition Support CCHO x 1 days Patient/Significant Other Unable To Verbalize Education Provided Not Indicated NEW Pertinent Medications Lovenox, Lasix, Coreg, Culturelle, IV ABX, Morphine, SSI, Ativan, Ambien, Colace NEW Pertinent Labs Na 123 L, K 4.9 WNL, BG 223 H - worsening, POC BG 199 H - worsening, HbA1c 7.6 H, BUN 35 H, CRE 1.8 H, eGFR 48 L - improving Height 6'0 Weight 215 lbs/97.5 kg Body Mass Index 29.16 kg/m2 %IBW 120 Oblong/Adjusted Body Weight 178lbs/80.9kg IBW. Recent Weight Change No Weight Status Overweight Gastrointestinal Symptoms None Last BM Feb 17, 2022 Difficulty With: Chewing Food Allergies No NEW Skin Integrity Comment: Miller Score: 18 per EMR review 02/17/22. Multiple wounds per Wound Consult Notes 02/16/22: 1. Right Superior/Anterior/Posterior Foot (Transmetatarsal Amputation site): Acute on Chronic Surgical Wound with possible Osteomyelitis 2. Right plantar foot, posterior to Transmetatarsal Amputation site: Area of yellow/brown eschar and dry scaly skin, present on admission. Current % PO Fair (50-74%) Estimated Energy Expenditure (kcals/day) 4174-3355 (30-35kcal/kg IBW d/t sepsis, wound healing) Estimated Protein Required (g/day) 78-118 (0.8-1.2g/kg CBW d/t CKD Stg 3, sepsis, wound healing) Estimated Fluid Required (l/day) Defer to MD d/t CKD Stg 3 Problem/Etiology/Signs/Symptoms Increased energy needs R/T metabolic demands AEB estimated nutritional needs for sepsis and wound healing. (Ongoing) Inability to manage self-care R/T homelessness AEB medical noncompliance elevated BG, POC BG, BUN, CRE, eGFR levels. (Ongoing) Expected Outcomes/Goals Monitor appetite and PO intakes w/ goal of meeting >75% estimated nutritional needs, labs trending WNL, normal GI function, and skin integrity/wt maintenance. Dietitian Recommendations * CCHO, Nepro BID, Virgil BID * Recommend Renal MVI, Vit C 100mg, Zinc Sulfate * Recommend double portions of protein and non-starchy vegetables Follow Up Mod Risk: F/U in 3-5days Follow Up By Feb 22, 2022
--- NOTE | 2022-02-17 17:22 | NUR ---
Dietitian Recommendations * CCHO, Nepro BID, Virgil BID * Recommend Renal MVI, Vit C 100mg, Zinc Sulfate * Recommend double portions of protein and non-starchy vegetables LP, MS, RD Please refer to Nutrition F/U for details.
--- NOTE | 2022-02-17 17:30 | NUR ---
PATIENT AWAKE ALERT ORIENTED TO NAME EVENT.NO ACUTE DISTRESS NOTED. PT ATTEMPTING TO GET OUT BED. PT IS DROWSY UNSTEADY GAIT NOTED. PT NOT EASILY REDIRECTED. PT IS VERBAL ABUSIVE TO STAFF WHEN REDIRECTED. PT REQUESTED ICE CHIPS. STAFF PROVIDED ICE CHIPS. PT FOUND INCONTINENT OF URINE. STAFF OFFERED TO BATH PT, PT REFUSED. STAFF PROVIDED FULL LINEN CHANGE. PT SITTING EDGE OF BED EATING AT THIS TIME. DRESSING OFF R FOOT. PT REFUSED TO ALLOW STAFF TO APPLY DRESSING TO WOUND.PT REQUIRES FREQUENT MONITORING. PRIMARY RN SITTING AT PT ROOM DOOR IN HALLWAY.
[2022-02-17 20:00] VITALS: BP_SYST 128
--- NOTE | 2022-02-17 20:10 | NUR ---
RECEIVED PATIENT IN BED , A/O X 3 , NO DISTRESS , NO C/O PAIN AT THIS TIME, RIGHT FOOT WOUND -OPEN TO AIR, CALL LIGHT WITHIN REACH.
[2022-02-18] VITALS: BP_SYST 123
[2022-02-18] MEDS: LORazepam 2 MG/ML VIAL IVP PRN (01:02)
[2022-02-18] MEDS: MORPHINE 2 MG/ML INJ. SYRINGE IVP PRN ×2 (01:04→21:17)
--- NOTE | 2022-02-18 01:06 | NUR ---
PATIENT WAS FOUND SITTING AT THE EDGE OF BED, START USE CURSING WORDS YELLING AND SCREAMING IN THE ROOM, WHOLE BED IS WET, SPONGE BATH GIVEN, CHANGED ALL LINEN AND GOWN, ATIVAN AND MORPHINE GIVEN ORDERED FOR AGITATION AND RIGHT FOOT PAIN 10/30. WILL CONTINUE TO MONITOR.
[2022-02-18 08:31] LABS: BASOPHILS % (AUTO) 0.2 % (0.0-2.0); EOSINOPHILS # (AUTO) 0.5 K/uL (0.0-0.4); EOSINOPHILS % (AUTO) 4.5 % (0.0-4.0); HEMATOCRIT 32.8 % (36-54); HEMOGLOBIN 10.8 g/dL (14.0-18.0); LYMPHOCYTES % (AUTO) 9.7 % (20.5-51.5); MEAN CORPUSCULAR HEMOGLOBIN 24 pg (27-31); MEAN CORPUSCULAR HGB CONC 33 % (32-36); MEAN CORPUSCULAR VOLUME 73 fL (79.0-98.0); MONOCYTES # (AUTO) 0.9 K/uL (0.0-1.0); MONOCYTES % (AUTO) 8.3 % (1.7-9.3); NEUTROPHILS # (AUTO) 8.1 K/uL (1.8-7.7); NEUTROPHILS % (AUTO) 77.3 % (40.0-70.0); PLATELET COUNT (AUTO) 515 K/uL (130-430); RED BLOOD CELL COUNT(AUTO) 4.47 MIL/uL (4.2-6.2); RED CELL DISTRIBUTION WIDTH 18.7 % (9.0-15.0); WHITE BLOOD COUNT (AUTO) 10.5 K/uL (4.8-10.8)
[2022-02-18 08:34] LABS: CALCIUM 7.9 mg/dL (8.4-11.0); CREATININE 1.69 mg/dL (0.55-1.30)
[2022-02-18 12:00] VITALS: BP_SYST 116
[2022-02-18] MEDS: CEFEPIME 2 GM in D5W 100 ML IV SCH ×2 (13:29→21:13)
[2022-02-18] MEDS: FUROSEMIDE 40 MG/4 ML VIAL IVP SCH (13:31)
[2022-02-18] MEDS: CARVEDILOL 25 MG TABLET (COREG) PO SCH (13:32)
[2022-02-18] MEDS: LACTOBACILLUS RHAMNOSUS GG 1 CAP CAPSULE PO SCH ×2 (13:33→21:13)
[2022-02-18] MEDS: ENOXAPARIN SODIUM 100 MG/ML SYRINGE SUBCUT SCH ×2 (13:38→21:13)
[2022-02-18] MEDS: ASPIRIN 81 MG TABLET(ECOTRIN) PO SCH (13:39)
[2022-02-18] MEDS: BALSAM PERU/CASTOR OIL 56.7 GM OINT...G. TP SCH (13:40)
[2022-02-18] MEDS: NACL 0.9% 1,000 ML IV SCH (13:41)
[2022-02-18 16:00] VITALS: BP_SYST 112
[2022-02-18] MEDS: DAPTOmycin 500 MG in NS 50 ML IV SCH (17:48)
--- NOTE | 2022-02-18 19:20 | NUR ---
OPENING NOTE REPORT RECEIVED FROM DAYSHIFT NURSE. PATIENT RECEIVED SITTING ON CHAIR BY BEDSIDE, EYES CLOSED, NO S/S OF ACUTE DISTRESS. BREATHING IS EVEN AND UNLABORED. CALL LIGHT WITHIN REACH. BED IS LOCKED AND AT LOWEST POSITION. WILL CONTINUE TO MONITOR.
--- NOTE | 2022-02-18 21:00 | NUR ---
CLEANUP VOID AND BM PATIENT DECIDED TO VOID AND HAVE BOWEL MOVEMENT IN THE MIDDLE OF THE ROOM WHITE STANDING UP AND USED THE CURTAIN TO COVER HIMSELF. PATIENT INSTRUCTED TO GET BACK IN BED AT THIS TIME SO GAS STATION CASHIER AND RN CAN CLEAN HIM SAFELY. PATIENT FOLLOWED ORDERS, CLEANED BY RN AND GAS STATION CASHIER. FLOOR CLEANED AT THIS TIME. PATIENT INSTRUCTED TO CALL IF HE NEEDS TO VOID, PATIENT VERBALIZED "WILL DO". CALL LIGHT WITH PATIENT, EDUCATED ON PROPER USE, PATIENT DEMONSTRATED BACK PROPER USE. BED ALARM ON. BED IS LOCKED AND AT LOWEST POSITION. WILL CONTINUE TO MONITOR.
[2022-02-18] MEDS: INSULIN REGULAR, HUMAN 100 UNITS/ML, 3 ML VIAL (humuLIN R) SUBCUT PRN (21:16)
--- NOTE | 2022-02-18 21:30 | NUR ---
NEW IV IV INSERTED RIGHT FOREARM, 20 GAUGE. PREVIOUS IV SITE REMOVED, CATHETER FULLY INTACT. PATIENT TOLERATED WELL. ALL NEEDS MET AT THIS TIME. WILL CONTINUE TO MONITOR.
[2022-02-18 22:15] VITALS: BP_SYST 111
--- NOTE | 2022-02-19 01:00 | NUR ---
ROUNDS PATIENT IN BED, SLEEPING COMFORTABLY. NO SIGNS OF DISCOMFORT NOTED. CHEST RISE AND FALL EVEN BILATERALLY. ALL NEEDS MET. WILL CONTINUE TO MONITOR.
[2022-02-19 01:13] VITALS: BP_SYST 121
--- NOTE | 2022-02-19 04:30 | NUR ---
VOID PATIENT VOIDED ON CHUCKS AND GOT UP, THREW CHUCKS ON THE FLOOR. RN THREW CHUCKS AWAY, PATIENT REFUSING INCONTINENT CARE. WENT BACK TO SLEEP.
[2022-02-19] MEDS: MORPHINE 2 MG/ML INJ. SYRINGE IVP PRN ×3 (06:02→18:14)
--- NOTE | 2022-02-19 06:14 | NUR ---
CLOSING NOTE PATIENT IN BED, EATING A SNACK, COMPLAINED OF PAIN, PRN MEDICATION GIVEN. BREATHING EVEN AND UNLABORED. IV SITE PATENT, NO SIGNS OF INFILTRATION OR INFECTION NOTED. SKIN WARM AND DRY TO TOUCH, BS WAS 95. ALL NEEDS MET THROUGHOUT SHIFT. FALL, SAFETY,ISOLATION PRECAUTIONS MAINTAINED THROUGHOUT SHIFT. WILL CONTINUE TO MONITOR UNTIL PATIENT CARE IS ENDORSED TO ONCOMING DAYSHIFT NURSE.
[2022-02-19] MEDS: NACL 0.9% 1,000 ML IV SCH (08:00)
[2022-02-19] MEDS: CEFEPIME 2 GM in D5W 100 ML IV SCH ×2 (11:31→20:47)
[2022-02-19] MEDS: FUROSEMIDE 40 MG/4 ML VIAL IVP SCH (11:32)
[2022-02-19] MEDS: ASPIRIN 81 MG TABLET(ECOTRIN) PO SCH (11:34)
[2022-02-19] MEDS: CARVEDILOL 25 MG TABLET (COREG) PO SCH (11:34)
[2022-02-19] MEDS: LACTOBACILLUS RHAMNOSUS GG 1 CAP CAPSULE PO SCH ×2 (11:34→21:09)
[2022-02-19] MEDS: ENOXAPARIN SODIUM 100 MG/ML SYRINGE SUBCUT SCH ×3 (11:35→21:08)
[2022-02-19] MEDS: BALSAM PERU/CASTOR OIL 56.7 GM OINT...G. TP SCH (11:36)
[2022-02-19] MEDS: DAPTOmycin 500 MG in NS 50 ML IV SCH (14:44)
[2022-02-19] MEDS: INSULIN REGULAR, HUMAN 100 UNITS/ML, 3 ML VIAL (humuLIN R) SUBCUT PRN (14:49)
--- NOTE | 2022-02-19 19:25 | NUR ---
OPENING NOTE PT IS LYING FLAT IN BED WITH EYES CLOSED. NO APPARENT DISTRESS NOTED AT THIS TIME. BED IS IN LOWEST POSITION WITH FALL AND SAFETY PRECAUTIONS IN PLACE. CALL LIGHT IS WITHIN REACH. PT EDUCATED ON PLAN OF CARE
[2022-02-19 20:00] VITALS: BP_SYST 134
[2022-02-19] MEDS: ZOLPIDEM TARTRATE 5 MG TABLET PO PRN (21:09)
--- NOTE | 2022-02-19 23:18 | NUR ---
PT IS NONCOMPLIANT HAS BEEN EDUCATED ON GETTING EXTRA FOOD AND STANDING IN BED PT CONSUSTANLY GETS UP AND PT IS A FALL RISK [employer]ICATION[employer] SPECIALIST FANY AND TEXTILE SCREEN MAKER AWARE
--- NOTE | 2022-02-20 00:30 | NUR ---
ROUNDS PT SLEEPING, AUDIBLY SNORING. BED IN LOWEST POSITION WITH FALL AND SAFETY PRECAUTIONS IN PLACE. CALL LIGHT IS WITHIN REACH.
[2022-02-20 01:13] VITALS: BP_SYST 138
--- NOTE | 2022-02-20 02:42 | NUR ---
PT NON COMPLIANT WITH STAYING IN BED DUE TO HIGH FALL RISK NURSE ASKED PT WHY HE KEPT STANDING. PT EXPLAINED TO THE NURSE THAT HE STANDS UP TO PEE IN THE URINAL. NURSE EXPLAINED WHY THE PT CANNOT STAND TO USE THE URINAL AND THE IMPORTANCE OF NOT STANDING. PT WOULD NOT LISTEN TO THE NURSE. SUPERVISORS AWARE.
[2022-02-20] MEDS: MORPHINE 2 MG/ML INJ. SYRINGE IVP PRN ×4 (02:43→21:07)
[2022-02-20] MEDS: NACL 0.9% 1,000 ML IV SCH (04:00)
--- NOTE | 2022-02-20 06:55 | NUR ---
CLOSING NOTE PT IS LYING IN BED WITH EYES OPEN. NO APPARENT SIGNS OF DISTRESS NOTED AT HIS TIME. BED IN LOWEST POSITION WITH FALL AND SAFETY PRECAUTIONS IN PLACE. CALL LIGHT WITHIN REACH. ALL NEEDS MET AT THIS TIME.
[2022-02-20] MEDS: CEFEPIME 2 GM in D5W 100 ML IV SCH ×2 (10:37→21:13)
[2022-02-20] MEDS: FUROSEMIDE 40 MG/4 ML VIAL IVP SCH (10:40)
[2022-02-20] MEDS: CARVEDILOL 25 MG TABLET (COREG) PO SCH (10:53)
[2022-02-20] MEDS: ASPIRIN 81 MG TABLET(ECOTRIN) PO SCH (10:56)
[2022-02-20] MEDS: LACTOBACILLUS RHAMNOSUS GG 1 CAP CAPSULE PO SCH ×2 (10:56→21:12)
[2022-02-20] MEDS: ENOXAPARIN SODIUM 100 MG/ML SYRINGE SUBCUT SCH ×2 (10:58→21:12)
[2022-02-20] MEDS: BALSAM PERU/CASTOR OIL 56.7 GM OINT...G. TP SCH (10:59)
[2022-02-20 12:00] VITALS: BP_SYST 136
[2022-02-20 16:00] VITALS: BP_SYST 134
[2022-02-20] MEDS: DAPTOmycin 500 MG in NS 50 ML IV SCH (16:00)
[2022-02-20] MEDS: LORazepam 2 MG/ML VIAL IVP PRN (19:19)
[2022-02-20] MEDS: INSULIN REGULAR, HUMAN 100 UNITS/ML, 3 ML VIAL (humuLIN R) SUBCUT PRN (21:33)
[2022-02-21] VITALS (8 sets, daily range): BP systolic 112–139
[2022-02-21] MEDS: MORPHINE 2 MG/ML INJ. SYRINGE IVP PRN ×5 (01:05→19:48)
[2022-02-21] MEDS: LORazepam 2 MG/ML VIAL IVP PRN (01:53)
[2022-02-21 06:50] LABS: BASOPHILS # (AUTO) 0.1 K/uL (0.0-0.2); BASOPHILS % (AUTO) 1.2 % (0.0-2.0); EOSINOPHILS # (AUTO) 0.4 K/uL (0.0-0.4); EOSINOPHILS % (AUTO) 4.9 % (0.0-4.0); HEMATOCRIT 34.1 % (36-54); HEMOGLOBIN 11.3 g/dL (14.0-18.0); LYMPHOCYTES # (AUTO) 1.3 K/uL (1.0-5.5); LYMPHOCYTES % (AUTO) 14.9 % (20.5-51.5); MEAN CORPUSCULAR HEMOGLOBIN 25 pg (27-31); MEAN CORPUSCULAR HGB CONC 33 % (32-36); MEAN CORPUSCULAR VOLUME 74 fL (79.0-98.0); MONOCYTES # (AUTO) 0.8 K/uL (0.0-1.0); MONOCYTES % (AUTO) 8.9 % (1.7-9.3); NEUTROPHILS % (AUTO) 70.1 % (40.0-70.0); PLATELET COUNT (AUTO) 610 K/uL (130-430); RED BLOOD CELL COUNT(AUTO) 4.63 MIL/uL (4.2-6.2); RED CELL DISTRIBUTION WIDTH 19.6 % (9.0-15.0); WHITE BLOOD COUNT (AUTO) 8.6 K/uL (4.8-10.8)
[2022-02-21 07:23] LABS: ALBUMIN 1.6 g/dL (3.4-4.8); CALCIUM 8.6 mg/dL (8.4-11.0); CREATININE 1.35 mg/dL (0.55-1.30); TOTAL BILIRUBIN 0.3 mg/dL (0.0-1.0)
[2022-02-21] MEDS: CEFEPIME 2 GM in D5W 100 ML IV SCH ×2 (10:31→20:40)
[2022-02-21] MEDS: FUROSEMIDE 40 MG/4 ML VIAL IVP SCH (10:40)
[2022-02-21] MEDS: CARVEDILOL 25 MG TABLET (COREG) PO SCH (10:42)
[2022-02-21] MEDS: LACTOBACILLUS RHAMNOSUS GG 1 CAP CAPSULE PO SCH ×2 (10:47→20:41)
[2022-02-21] MEDS: ASPIRIN 81 MG TABLET(ECOTRIN) PO SCH (10:51)
[2022-02-21] MEDS: ENOXAPARIN SODIUM 100 MG/ML SYRINGE SUBCUT SCH ×2 (10:53→20:53)
[2022-02-21] MEDS: BALSAM PERU/CASTOR OIL 56.7 GM OINT...G. TP SCH (10:54)
[2022-02-21] MEDS: DAPTOmycin 500 MG in NS 50 ML IV SCH (12:22)
[2022-02-21] MEDS ORDERED: PERMETHRIN 5% 60 GM CREAM.GM. TP ONE (17:00)
--- NOTE | 2022-02-21 17:52 | NUR ---
End of Shift Summary: This RN has cared for the patient above for several days and have found many issues to work on with this patient. Patient has major concerns regarding his homeless situation and how he responds to situations that he must deal with. Patient initially here for problems with his right amputated foot. He is not aware of how to appropriately care for it or himself so this RN spent several days attempting to teach the patient why and how he has various issues. At this time patient has stopped urinating on the floor which he was doing a dozen times a day. He also stopped defecating on the floor as well. Explained to patient about his CHF, why he gets Lasix, but also curtained the excessive fluids he would drink and get through IV treatments. Patient also eats constantly and during my care didn't provide excess foods for patient to eat which helped to bring patients blood sugar down and also helped to decrease urine out put. Patient had an appropriately formed and sized stool today and did use the bedside commode. At this time, patient has two remaining issues that staff is working on. Patient found to have scabies and so, patient is scheduled to get a bath tonight and be treated with Elimite cream when it arrives from pharmacy. Patient is isolated and signs on the door. Finally, patient continues to complain regarding pain that he rates 10/10 and that he gets no relief from the current pain regimen whether he is receiving morphine and Ativan or just morphine. This information has been passed on to the physician for further evaluation. Otherwise, patient has been advised that he may have morphine as ordered and the time when it is avaible next will be posted on his whiteboard so he will be aware when he can have pain meds the next time. He indicated that he understood the system and looks forward to the next time that he can receive pain medication. Now, patient has eaten and there is no sign or symptom of acute distress at this moment. Again, oncoming RN made aware of all of patient's issues and concern at this time.
--- NOTE | 2022-02-21 19:30 | NUR ---
Opening note Pt is awake lying in bed. No s/s of respiratory distress. Breathing even and unlabored on RA. C/o of pain asking for PRN meds. IV site intact and patent. Fall and safety precautions in place with bed in lowest position, bed alarm on, and call light within reach
[2022-02-21] MEDS: NACL 0.9% 1,000 ML IV SCH ×2 (20:00)
--- NOTE | 2022-02-21 22:10 | NUR ---
Note Pt urinated on the floor because he said he could not reach the urinal. Assisted pt w/ 2 other RNs to the chair. Changed entire bedding. Pt requesting to sit in the chair for a while. Applied permethrin cream all over body for scabies. Fall and safety checks in place
[2022-02-22] VITALS: BP_SYST 125
[2022-02-22] MEDS: MORPHINE 2 MG/ML INJ. SYRINGE IVP PRN ×3 (00:10→11:02)
[2022-02-22] MEDS: LORazepam 2 MG/ML VIAL IVP PRN ×3 (01:47→20:48)
--- NOTE | 2022-02-22 04:10 | NUR ---
Rounds Pt sitting up in bed. PRN pain medication administered. Fall and safety checks in place
--- NOTE | 2022-02-22 06:47 | NUR ---
Closing note Pt resting in bed, eyes closed. No s/s of respiratory distress. Breathing even and unlabored on RA. IV site intact and patent. Morning BS 101, pt states he feels his blood sugar is dropping and is requesting juice. All needs met throughout shift. Fall and safety precautions in place with bed in lowest position, bed alarm on, and call light within reach
--- NOTE | 2022-02-22 07:00 | NUR ---
Report received from rail manager RN. Patient stable.
[2022-02-22 07:04] LABS: CALCIUM 8.5 mg/dL (8.4-11.0); CREATININE 1.37 mg/dL (0.55-1.30)
[2022-02-22 07:38] LABS: BASOPHILS # (AUTO) 0.1 K/uL (0.0-0.2); BASOPHILS % (AUTO) 1.1 % (0.0-2.0); EOSINOPHILS # (AUTO) 0.4 K/uL (0.0-0.4); HEMATOCRIT 31.6 % (36-54); HEMOGLOBIN 10.5 g/dL (14.0-18.0); LYMPHOCYTES # (AUTO) 1.6 K/uL (1.0-5.5); LYMPHOCYTES % (AUTO) 19.6 % (20.5-51.5); MEAN CORPUSCULAR HEMOGLOBIN 25 pg (27-31); MEAN CORPUSCULAR HGB CONC 33 % (32-36); MEAN CORPUSCULAR VOLUME 74 fL (79.0-98.0); MONOCYTES # (AUTO) 0.8 K/uL (0.0-1.0); MONOCYTES % (AUTO) 10.2 % (1.7-9.3); NEUTROPHILS # (AUTO) 5.1 K/uL (1.8-7.7); NEUTROPHILS % (AUTO) 64.1 % (40.0-70.0); PLATELET COUNT (AUTO) 558 K/uL (130-430); RED BLOOD CELL COUNT(AUTO) 4.27 MIL/uL (4.2-6.2); RED CELL DISTRIBUTION WIDTH 19.1 % (9.0-15.0)
[2022-02-22 08:00] VITALS: BP_SYST 123
[2022-02-22] MEDS: ENOXAPARIN SODIUM 100 MG/ML SYRINGE SUBCUT SCH (09:00)
[2022-02-22] MEDS: BALSAM PERU/CASTOR OIL 56.7 GM OINT...G. TP SCH (09:00)
[2022-02-22] MEDS: CARVEDILOL 25 MG TABLET (COREG) PO SCH (10:18)
[2022-02-22] MEDS: ASPIRIN 81 MG TABLET(ECOTRIN) PO SCH (10:18)
[2022-02-22] MEDS: LACTOBACILLUS RHAMNOSUS GG 1 CAP CAPSULE PO SCH ×2 (10:18→20:48)
[2022-02-22] MEDS: FUROSEMIDE 40 MG/4 ML VIAL IVP SCH (10:19)
--- NOTE | 2022-02-22 10:54 | NUR ---
Patient refused IV fluids and Lovenox. made aware.
[2022-02-22] MEDS: INSULIN REGULAR, HUMAN 100 UNITS/ML, 3 ML VIAL (humuLIN R) SUBCUT PRN ×3 (11:20→22:18)
--- NOTE | 2022-02-22 14:09 | NUR ---
Discharge Planning: DCP followed up with [facility] [phone]-Delined pt, [facility] [phone]- can not admit due to construction, [facility] [phone]-No ISO rooms. Addendum: 02/22/22 at 1607 by Jaye Yang DP DCP faxed pt referral to [facility] [phone], [facility] [phone], [facility] [phone], [facility] [phone]. DCP to follow up.
--- NOTE | 2022-02-22 16:00 | NUR ---
Reported to Dr. Auguste regarding patient's request for pain medicine. New orders noted and carried out.
[2022-02-22] MEDS: DAPTOmycin 500 MG in NS 50 ML IV SCH (16:03)
[2022-02-22] MEDS: NACL 0.9% 1,000 ML IV SCH (16:12)
[2022-02-22] MEDS: ACETAMINOPHEN 325 MG TABLET PO PRN ×2 (16:42→20:49)
--- NOTE | 2022-02-22 19:30 | NUR ---
Report given to head tennis professional RN for continuity of care. Patient stable.
[2022-02-22 20:00] VITALS: BP_SYST 118
[2022-02-22] MEDS: APIXABAN 2.5 MG TABLET PO SCH (20:47)
[2022-02-22] MEDS: ZOLPIDEM TARTRATE 5 MG TABLET PO PRN (20:49)
[2022-02-22] MEDS: CEFEPIME 2 GM in D5W 100 ML IV SCH (20:50)
--- NOTE | 2022-02-22 23:45 | NUR ---
SBAR Received SBAR report from BEAR Alains. Resting in bed, eyes closed, on room air. IV to FRA is KVO. Safety and isolation precautions in place.
[2022-02-23 00:35] VITALS: BP_SYST 125
[2022-02-23] MEDS: ACETAMINOPHEN 325 MG TABLET PO PRN (02:51)
[2022-02-23 06:36] LABS: BASOPHILS # (AUTO) 0.1 K/uL (0.0-0.2); BASOPHILS % (AUTO) 1.2 % (0.0-2.0); EOSINOPHILS # (AUTO) 0.4 K/uL (0.0-0.4); EOSINOPHILS % (AUTO) 4.8 % (0.0-4.0); HEMATOCRIT 31.7 % (36-54); HEMOGLOBIN 10.6 g/dL (14.0-18.0); LYMPHOCYTES # (AUTO) 1.6 K/uL (1.0-5.5); LYMPHOCYTES % (AUTO) 19.9 % (20.5-51.5); MEAN CORPUSCULAR HEMOGLOBIN 25 pg (27-31); MEAN CORPUSCULAR HGB CONC 33 % (32-36); MEAN CORPUSCULAR VOLUME 74 fL (79.0-98.0); MONOCYTES # (AUTO) 0.8 K/uL (0.0-1.0); MONOCYTES % (AUTO) 9.6 % (1.7-9.3); NEUTROPHILS % (AUTO) 64.5 % (40.0-70.0); PLATELET COUNT (AUTO) 505 K/uL (130-430); RED BLOOD CELL COUNT(AUTO) 4.28 MIL/uL (4.2-6.2); RED CELL DISTRIBUTION WIDTH 19.4 % (9.0-15.0); WHITE BLOOD COUNT (AUTO) 7.8 K/uL (4.8-10.8)
[2022-02-23] MEDS: INSULIN REGULAR, HUMAN 100 UNITS/ML, 3 ML VIAL (humuLIN R) SUBCUT PRN ×3 (06:53→23:19)
[2022-02-23 07:12] LABS: CALCIUM 8.7 mg/dL (8.4-11.0); CREATININE 1.51 mg/dL (0.55-1.30)
--- NOTE | 2022-02-23 08:00 | NUR ---
OPENING NOTE Pt. is AAOx4 currently sitting up in bed, feet elevated, fall precautions in place. No signs of acute distress.
--- NOTE | 2022-02-23 08:00 | NUR ---
Opening Notes Pt. is AAox4, no signs of acute distress, currently speaking to family on cellphone, fall precautions in place.
[2022-02-23] MEDS ORDERED: NALOXONE HCL 0.4 MG/ML AMP (NARCAN) IVP PRN (08:15)
[2022-02-23 08:45] VITALS: BP_SYST 150
[2022-02-23] MEDS: FUROSEMIDE 40 MG/4 ML VIAL IVP SCH (09:00)
[2022-02-23] MEDS: LIDOCAINE JELLY 5 ML TUBE MM SCH ×2 (09:00→21:00)
[2022-02-23] MEDS: CARVEDILOL 25 MG TABLET (COREG) PO SCH (09:01)
[2022-02-23] MEDS: APIXABAN 2.5 MG TABLET PO SCH ×2 (09:02→22:31)
[2022-02-23] MEDS: ASPIRIN 81 MG TABLET(ECOTRIN) PO SCH (09:03)
[2022-02-23] MEDS: LACTOBACILLUS RHAMNOSUS GG 1 CAP CAPSULE PO SCH ×2 (09:03→22:29)
[2022-02-23] MEDS: HYDROcodone/ACETAMIN 5-325 MG TAB (NORCO/ VICODIN) PO PRN ×2 (09:03→22:29)
[2022-02-23] MEDS: CEFEPIME 2 GM in D5W 100 ML IV SCH ×2 (09:05→22:41)
[2022-02-23 12:00] VITALS: BP_SYST 118
[2022-02-23] MEDS: NACL 0.9% 1,000 ML IV SCH (12:00)
--- NOTE | 2022-02-23 12:00 | NUR ---
Pt. is refusing to be connected to IVF. Pt. is on lasix and was unable to reach MD to ask for clarification regarding IV fluids.
--- NOTE | 2022-02-23 14:50 | NUR ---
Obtained clothes for the patient a t-shirt and pair of pants since pt. stated he had no clothes.
[2022-02-23 16:00] VITALS: BP_SYST 114
--- NOTE | 2022-02-23 16:06 | NUR ---
Called pharmacy for lidocaine jelly but they stated that the medication has been re-called and is not available.
[2022-02-23] MEDS: BALSAM PERU/CASTOR OIL 56.7 GM OINT...G. TP SCH (18:07)
[2022-02-23] MEDS: DAPTOmycin 500 MG in NS 50 ML IV SCH (18:10)
--- NOTE | 2022-02-23 19:50 | NUR ---
CLOSING NOTE Pt. is AAOx4 sitting up in chair, full SBAR report given to BEAR Green, pt. is reporting pain at this time, endorsed to Norma.
[2022-02-24] VITALS: BP_SYST 115
[2022-02-24] MEDS: ZOLPIDEM TARTRATE 5 MG TABLET PO PRN ×2 (01:01→22:27)
--- NOTE | 2022-02-24 07:24 | NUR ---
PATIENT IS AAOX4,UNCO-OPERATIVE AND PATIENT IS VERY MANIPULATIVE. DRESSING CHANGE TO RIGHT FOOT DONE ORDERED
[2022-02-24 07:51] LABS: CREATININE 1.66 mg/dL (0.55-1.30)
[2022-02-24] MEDS: NACL 0.9% 1,000 ML IV SCH (08:00)
[2022-02-24 09:01] LABS: BASOPHILS # (AUTO) 0.1 K/uL (0.0-0.2); BASOPHILS % (AUTO) 0.9 % (0.0-2.0); EOSINOPHILS # (AUTO) 0.4 K/uL (0.0-0.4); EOSINOPHILS % (AUTO) 5.5 % (0.0-4.0); HEMATOCRIT 32.1 % (36-54); HEMOGLOBIN 10.6 g/dL (14.0-18.0); LYMPHOCYTES # (AUTO) 1.8 K/uL (1.0-5.5); LYMPHOCYTES % (AUTO) 22.4 % (20.5-51.5); MEAN CORPUSCULAR HEMOGLOBIN 25 pg (27-31); MEAN CORPUSCULAR HGB CONC 33 % (32-36); MEAN CORPUSCULAR VOLUME 74 fL (79.0-98.0); MONOCYTES # (AUTO) 0.8 K/uL (0.0-1.0); MONOCYTES % (AUTO) 9.7 % (1.7-9.3); NEUTROPHILS # (AUTO) 4.8 K/uL (1.8-7.7); NEUTROPHILS % (AUTO) 61.5 % (40.0-70.0); PLATELET COUNT (AUTO) 481 K/uL (130-430); RED BLOOD CELL COUNT(AUTO) 4.33 MIL/uL (4.2-6.2); RED CELL DISTRIBUTION WIDTH 19.6 % (9.0-15.0); WHITE BLOOD COUNT (AUTO) 7.9 K/uL (4.8-10.8)
[2022-02-24] MEDS: ASPIRIN 81 MG TABLET(ECOTRIN) PO SCH (11:11)
[2022-02-24] MEDS: HYDROcodone/ACETAMIN 5-325 MG TAB (NORCO/ VICODIN) PO PRN ×3 (11:13→23:55)
[2022-02-24] MEDS: CARVEDILOL 25 MG TABLET (COREG) PO SCH (11:14)
[2022-02-24] MEDS: DOCUSATE SODIUM 100 MG CAPSULE PO PRN (11:14)
[2022-02-24] MEDS: LACTOBACILLUS RHAMNOSUS GG 1 CAP CAPSULE PO SCH ×2 (11:16→22:23)
[2022-02-24] MEDS: APIXABAN 2.5 MG TABLET PO SCH ×2 (11:24→22:26)
[2022-02-24 12:00] VITALS: BP_SYST 119
[2022-02-24 16:00] VITALS: BP_SYST 106
--- NOTE | 2022-02-24 16:11 | NUR ---
Discharge Planning: DCP followed up with pt referral to [facility] [phone]-Declined no [facility], [facility] [phone]-declined no ISO bed, [facility] [phone]-no iso bed, [facility] [phone]-declined. DCP to continue to find SNF placement.
[2022-02-24] MEDS: CEFEPIME 2 GM in D5W 100 ML IV SCH ×2 (16:12→22:27)
[2022-02-24] MEDS: LIDOCAINE JELLY 5 ML TUBE MM SCH ×2 (16:14→21:00)
[2022-02-24] MEDS: FUROSEMIDE 40 MG/4 ML VIAL IVP SCH (16:14)
[2022-02-24] MEDS: BALSAM PERU/CASTOR OIL 56.7 GM OINT...G. TP SCH (16:15)
[2022-02-24] MEDS: DAPTOmycin 500 MG in NS 50 ML IV SCH (16:18)
--- NOTE | 2022-02-24 19:49 | NUR ---
RECEIVED SITTING UP IN BED, AAO X4, DENIES PAIN AT THIS TIME. WILL CONTINUE TO MONITOR
[2022-02-24 22:00] VITALS: BP_SYST 117
--- NOTE | 2022-02-24 22:00 | NUR ---
took over care of patient. pt currently laying in bed resting. bs taken 159. 2 unit coverage provided. pt educated to use the call light if he needs assistance. all needs meet at this time. will continue to monitor.
[2022-02-24] MEDS: INSULIN REGULAR, HUMAN 100 UNITS/ML, 3 ML VIAL (humuLIN R) SUBCUT PRN (23:57)
[2022-02-25 01:29] VITALS: BP_SYST 126
[2022-02-25] MEDS: NACL 0.9% 1,000 ML IV SCH ×2 (04:00→23:58)
--- NOTE | 2022-02-25 04:15 | NUR ---
PT REFUSED CARE FROM NOC SHIFT TRAFFIC INVESTIGATOR SHIRLEY STATED TRAFFIC INVESTIGATOR WAS INTIMIDATING ACCUSING TRAFFIC INVESTIGATOR OF NOT CARING FOR REASSURED PT THAT STAFF WAS HERE TO MAKE SURE PT WAS CARED FOR PT IS ALERT AND AMBULATORY PT STATED HE DID NOT WANT TRAFFIC INVESTIGATOR IN ROOM RAMAKRISHNA QUEEN WAS ABLE TO DO MIDNIGHT VITALS WHILE TRAFFIC INVESTIGATOR OBSERVED BEAR SPAIN AND BINDERY MACHINE FEEDER OFFBEARER YIMI/ CHARGE NURSE GISELE FAJARDO
--- NOTE | 2022-02-25 05:31 | NUR ---
LATE ENTRY, 1939 RN WENT INTO ASSESS PATIENT , PATIENT REFUSED TO BE ASSESSED AND ALSO REFUSED VITAL SIGNS FROM BEING TAKEN, PATIENT SAID THAT HE WANTED DRESSING CHANGE TO HIS RIGHT LEG WOUND AND STARTED REMOVING DRESSING , RN PUT A TAPE ON THE DRESSING TO HOLD DRESSING IN PLACE AND TOLD PATIENT THAT THE DRESSING WOULD BE DONE LATER . PATIENT BECAME ANGRY AND STARTED YELLING AND USING INAPPRIOPRIATE WORDS, PATIENT TOLD RN THAT RN IS BEING PAID TO TAKE CARE OF HIM AND RN MUST DO WHAT HE WANTED HER TO DO, AT THIS POINT RN CALLED NURSING CORRECTIONAL SERGEANT WHO WAS IN THE OFFICE NEAR BY TO SPEAK WITH PATIENT. CORRECTIONAL SERGEANT EXPLAINED TO PATIENT THAT , HE HAS A RIGHT TO REFUSE CARE AND ASKED THAT IT BE DOCUMENTED THAT PATIENT REFUSED CARE AND LET THE DOCTOR KNOW THAT PATIENT IS REFUSING CARE. WHEN PATIENT HEARD THAT MD WOULD BE MADE AWARE OF HIS REFUSING CARE , HE CHANGED HIS MIND AND ALLOWED RN TO CHECK HIS VITALS. THIRTY MINUTES AFTER THIS INCIDENT, PATIENT WAS ANGRY THAT HIS PERSONAL MEDICATIONS FROM HOME WERE TAKEN OUT OF HIS ROOM BY THE [employer] WHO FOUND THEM ON HIM AND HANDED THEM OVER TO RN ; PATIENT IS NOT SUPPOSED TO HAVE HIS PERSONAL MEDICATIONS AT BEDSIDE , PATIENT WANTED THE MEDICATION BACK . RN EXPLAINED TO PATIENT THAT HE IS NOT ALLOWED TO HAVE HIS PERSONAL MEDICATIONS AT BEDSIDE PER HOSPITAL POLICY. AT THIS STAGE PATIENT THEN REQUESTED THAT HE BE TOLD ALL THE MEDICATIONS THAT HE IS ON, CHARGE NURSE WAS INFORMED AND CHARGE NURSE TOOK THE COMPUTER INTO PATIENT ROOM AND EXPLAINED TO PATIENT ALL THE ORDERED MEDICATIONS AND THE TIME SCHEDULE FOR EACH MEDICATION. AFTER THE TEACHING SESSION WITH THE CHARGE. RN BROUGHT IN THE DUE MEDICATIONS, TO PATIENT,RN PULLED TYLENOL, AND OTHER DUE MEDICATIONS AND DID MEDICATION TEACHING BEFORE HANDING MEDICATIONS TO PATIENT, PATIENT WANTED NARCO WHICH WAS NOT DUE , PATIENT WAS UPSET AND REQUESTED FOR THE CHARGE NURSE AGAIN , WITH PATIENT HOLDING ONTO THE CUP OF MEDICATIONS IN HIS RIGHT HAND,RN THEN EMPTIED AND CLEANED THE TWO URINALS THAT IS AT PATIENT BEDSIDE AND WENT ON TO CALLED THE CHARGE NURSE AT 2149, PATIENT,S BEHAVIOR WAS CAUSING DELAY IN THE CARE OF OTHER ASSIGNED PATIENTS, RN THEN REQUESTED THAT PATIENT BE ASSIGNED TO ANOTHER RN. PATIENT WAS THEN RE-ASSIGNED TO THE CARE OF ANOTHER RN AT 22OO. PATIENT IS VERY MANIPULATIVE AND VERY DIFFICULT TO CARE FOR
--- NOTE | 2022-02-25 06:22 | NUR ---
pt refused to be connected to iv fluids. pt re-educated on the importance of the iv fluids. pt still refused
[2022-02-25 07:14] LABS: CALCIUM 8.5 mg/dL (8.4-11.0); CREATININE 1.52 mg/dL (0.55-1.30)
[2022-02-25] MEDS: HYDROcodone/ACETAMIN 5-325 MG TAB (NORCO/ VICODIN) PO PRN ×2 (07:22→17:06)
[2022-02-25 08:27] LABS: BASOPHILS # (AUTO) 0.1 K/uL (0.0-0.2); BASOPHILS % (AUTO) 1.5 % (0.0-2.0); EOSINOPHILS # (AUTO) 0.4 K/uL (0.0-0.4); EOSINOPHILS % (AUTO) 5.6 % (0.0-4.0); HEMATOCRIT 33.8 % (36-54); HEMOGLOBIN 10.9 g/dL (14.0-18.0); LYMPHOCYTES # (AUTO) 1.5 K/uL (1.0-5.5); LYMPHOCYTES % (AUTO) 20.2 % (20.5-51.5); MEAN CORPUSCULAR HEMOGLOBIN 24 pg (27-31); MEAN CORPUSCULAR HGB CONC 32 % (32-36); MEAN CORPUSCULAR VOLUME 75 fL (79.0-98.0); MONOCYTES # (AUTO) 0.7 K/uL (0.0-1.0); MONOCYTES % (AUTO) 9.6 % (1.7-9.3); NEUTROPHILS # (AUTO) 4.6 K/uL (1.8-7.7); NEUTROPHILS % (AUTO) 63.1 % (40.0-70.0); PLATELET COUNT (AUTO) 447 K/uL (130-430); RED BLOOD CELL COUNT(AUTO) 4.52 MIL/uL (4.2-6.2); RED CELL DISTRIBUTION WIDTH 19.5 % (9.0-15.0); WHITE BLOOD COUNT (AUTO) 7.3 K/uL (4.8-10.8)
[2022-02-25] MEDS: CARVEDILOL 25 MG TABLET (COREG) PO SCH (09:00)
[2022-02-25] MEDS: CEFEPIME 2 GM in D5W 100 ML IV SCH ×2 (11:17→21:29)
[2022-02-25] MEDS: FUROSEMIDE 40 MG/4 ML VIAL IVP SCH (11:18)
[2022-02-25] MEDS: LIDOCAINE JELLY 5 ML TUBE MM SCH ×2 (11:19→21:00)
[2022-02-25] MEDS: APIXABAN 2.5 MG TABLET PO SCH ×2 (11:21→21:32)
[2022-02-25] MEDS: LACTOBACILLUS RHAMNOSUS GG 1 CAP CAPSULE PO SCH ×2 (11:21→21:28)
[2022-02-25] MEDS: ASPIRIN 81 MG TABLET(ECOTRIN) PO SCH (11:21)
[2022-02-25] MEDS: BALSAM PERU/CASTOR OIL 56.7 GM OINT...G. TP SCH ×2 (11:22→21:31)
[2022-02-25] MEDS: INSULIN REGULAR, HUMAN 100 UNITS/ML, 3 ML VIAL (humuLIN R) SUBCUT PRN ×2 (12:30→17:53)
[2022-02-25 14:17] VITALS: BP_SYST 110
[2022-02-25] MEDS: DAPTOmycin 500 MG in NS 50 ML IV SCH (15:52)
[2022-02-25 18:41] VITALS: BP_SYST 114
[2022-02-25 20:32] VITALS: BP_SYST 119
--- NOTE | 2022-02-25 23:05 | NUR ---
WOUND CARE Rt foot dressing dislodged. Cleansed and changed dressing per wound care nurse recommedations. Foud odor and yellow drainage noted. pt tolerated well. Educated and encouraged pt to elevate the foot on pillow but pt refused.
[2022-02-26] MEDS: HYDROcodone/ACETAMIN 5-325 MG TAB (NORCO/ VICODIN) PO PRN ×2 (00:29→06:27)
[2022-02-26] MEDS: ZOLPIDEM TARTRATE 5 MG TABLET PO PRN (01:31)
--- NOTE | 2022-02-26 06:27 | NUR ---
Closing notes/refused lab Pt c/o r. leg pain 09/30, medicate with [place] 5 one tab as needed. Pt's urinal emptied. Pt refused IVF, educated pt on risk and benefit. Pt refused lab draw at this time unless he gets orange juice. marketing technology coordinator will try again this AM. Bed low, locked, siderails up x2. To endorse to AM nurse.
--- NOTE | 2022-02-26 07:30 | NUR ---
OPENING NOTES: PATIENT IS STANDING OUTSIDE THE DOOR YELLING "NURSE, NURSE, NURSE". WENT TO CHECK UP ON HIM AND WAS HOLDING A CUP DEMANDING FOR A CUP OF COFFEE. TOLD PATIENT TO GET BACK TO BED AND WILL GET HIM COFFEE BUT PATIENT CANNOT WAIT AND DEMANDED TO GET IT NOW. PATIENT IS AAO4 ABLE TO MAKE NEEDS KNOWN. HOWEVER PATIENT HAS BEHAVIORAL ISSUE (ATTENTION SEEKER AND VERY NEEDY) WHERE HE DEMANDS FOR MORE FOOD, WATER, AND OTHER NON-NURSING ISSUE (NON-EMERGENCY THING WELL). PATIENT PRESSES THE CALL LIGHTS CONSTANTLY. EVEN WHEN THE NURSE COMES TO HIS ROOM AND ATTEND HIS NEED HE WILL PRESS THE CALL LIGHT SOON THE NURSE LEAVES THE ROOM. PATIENT DOES NOT LISTEN AND LIKES TO ARGUES AND MAKE EXCUSES. CONSTANT ROUNDING HAS BEEN DONE SINCE TRAFFIC INSPECTOR. BUT PATIENT WILL NOT STOP PRESSING THE CALL LIGHTS EVEN WHEN NEEDS ARE ALREADY MET. NOTED PATIENT WANTS SOMEBODY TO BE IN THE ROOM AND WANTS HIS WAY ALL THE TIME. PATIENT IS NON COMPLIANT WITH MEDICATION AND WOULD ARGUE BEFORE TAKING THEM. PATIENT WOULD NOT REST HIS RIGHT FOOT (WOUNDS) AND AMBULATE IN THE HALLWAY TO THE NURSES STATIONS TO TRY TO INTIMIDATE THE NURSES AND DEMANDS THINGS. EDUCATIONAL REINFORCEMENT HAS BEEN MADE SUCH KEEPING THE DRESSING ON HIS RIGHT FOOT OFF THE FLOOR AND NOT PICKED ON IT. WELL , PATIENT NOT COMPLIANT WITH DIET. ASKING FOR DOUBLE TRAY, SNACKS, JUICES, AND WATER. ALSO, NOT STAYING HIS ROOM (INFECTION CONTROL). PATIENT IS CURRENTLY ON ISOLATION FOR MRSA ON THE WOUND AND ESBL ON THE URINE. SECURITY HAS BEEN CALLED ON A DAILY BASIS AND CHARGE NURSE HAS BEEN TALKING TO HIM CONSTANTLY. NO ADDITIONAL DISTRESS NOTED. STABLE CONDITION AT THIS TIME.
[2022-02-26 08:00] VITALS: BP_SYST 141
[2022-02-26] MEDS: ASPIRIN 81 MG TABLET(ECOTRIN) PO SCH (08:45)
[2022-02-26] MEDS: FUROSEMIDE 40 MG/4 ML VIAL IVP SCH (08:45)
[2022-02-26] MEDS: LACTOBACILLUS RHAMNOSUS GG 1 CAP CAPSULE PO SCH (08:45)
[2022-02-26] MEDS: CARVEDILOL 25 MG TABLET (COREG) PO SCH (08:45)
[2022-02-26] MEDS: APIXABAN 2.5 MG TABLET PO SCH (08:48)
[2022-02-26] MEDS: CEFEPIME 2 GM in D5W 100 ML IV SCH (08:53)
[2022-02-26 09:01] LABS: BASOPHILS % (AUTO) 0.1 % (0.0-2.0); EOSINOPHILS # (AUTO) 0.3 K/uL (0.0-0.4); EOSINOPHILS % (AUTO) 5.2 % (0.0-4.0); HEMATOCRIT 33.9 % (36-54); HEMOGLOBIN 11.1 g/dL (14.0-18.0); LYMPHOCYTES # (AUTO) 1.3 K/uL (1.0-5.5); MEAN CORPUSCULAR HEMOGLOBIN 24 pg (27-31); MEAN CORPUSCULAR HGB CONC 33 % (32-36); MEAN CORPUSCULAR VOLUME 74 fL (79.0-98.0); MONOCYTES # (AUTO) 0.6 K/uL (0.0-1.0); MONOCYTES % (AUTO) 8.3 % (1.7-9.3); NEUTROPHILS # (AUTO) 4.5 K/uL (1.8-7.7); NEUTROPHILS % (AUTO) 67.4 % (40.0-70.0); PLATELET COUNT (AUTO) 388 K/uL (130-430); RED BLOOD CELL COUNT(AUTO) 4.57 MIL/uL (4.2-6.2); RED CELL DISTRIBUTION WIDTH 19.5 % (9.0-15.0); WHITE BLOOD COUNT (AUTO) 6.7 K/uL (4.8-10.8)
[2022-02-26 09:19] LABS: CALCIUM 8.4 mg/dL (8.4-11.0); CREATININE 1.58 mg/dL (0.55-1.30)
--- NOTE | 2022-02-26 11:00 | NUR ---
DRESSING REMOVED: PATIENT REMOVED HIS DRESSING AND DEMANDED TO IT HIEN. EDUCATE PATIENT TO NOT PICK ON THE DRESSING AND UNDRESSING IT WILL EXPOSE THE WOUND TO MORE INFECTION. PATIENT DENIES REMOVING THE DRESSING AND STARTED ARGUING WITH THE NURSE.
[2022-02-26 11:27] VITALS: BP_SYST 136
--- NOTE | 2022-02-26 14:00 | NUR ---
DRESSING CHANGED: DRESSING TO THE RIGHT FOOT TOTALLY DISMANTLE. FOAM DRESSING AND GAUZE WRAP ON THE FLOOR. PATIENT CONTINUE TO WALKED AROUND HIS ROOM AND HALLWAYS CALLING THE NURSE BY WHISTLING AND YELLING "HELP ME, HELP." AND WHEN THE NURSE CHECKED UP ON HIS. PATIENT IS EITHER LAYING ON HIS BED ON SITTING AT THE SIDE OF THE BED W/O COMPLICATION OR EMERGENCY. TRY TO EDUCATE THE PATIENT BUT PATIENT JUST LIKE TO ARGUE AND DENIES ABOUT HIS BEHAVIOR. CLEANSE RIGHT FOOT WITH NS, PADDED DRY WITH STERILE GAUZE, APPLIED HYDROGEL AND VENELEX, PACKED WITH IODOFORM, COVERED WITH FOAM, WRAP WITH GAUZE AND KERLIX WRAP. Addendum: 02/26/22 at 1902 by [facility] BE[facility] Hough RN WRONG TIME
--- NOTE | 2022-02-26 14:30 | NUR ---
SECURITY AT THE STATION: PATIENT AT THE STATION DEMANDING FOR NURSES TO SEE HIM. DENYING THAT THE NURSES SEEM HIM. NURSES ON THE FLOOR HAS BEEN ANSWERING HIS CALL LIGHT AND TRIED TO MAKE HIS NEEDS BE ATTENDED BUT ALWAYS UNSATISFIED. SECURITY WAS CALLED AND TALKED TO THE PATIENT. Addendum: 02/26/22 at 3 by [facility], BEAR SIFUENTES WRONG TIME
--- NOTE | 2022-02-26 15:00 | NUR ---
SECURITY AT THE STATION: PATIENT AT THE STATION DEMANDING FOR NURSES TO SEE HIM. DENYING THAT THE NURSES SEEM HIM. NURSES ON THE FLOOR HAS BEEN ANSWERING HIS CALL LIGHT AND TRIED TO MAKE HIS NEEDS BE ATTENDED BUT ALWAYS UNSATISFIED. SECURITY WAS CALLED AND TALKED TO THE PATIENT.
--- NOTE | 2022-02-26 15:30 | NUR ---
DRESSING CHANGED: DRESSING TO THE RIGHT FOOT TOTALLY DISMANTLE. FOAM DRESSING AND GAUZE WRAP ON THE FLOOR. PATIENT CONTINUE TO WALKED AROUND HIS ROOM AND HALLWAYS CALLING THE NURSE BY WHISTLING AND YELLING "HELP ME, HELP." AND WHEN THE NURSE CHECKED UP ON HIS. PATIENT IS EITHER LAYING ON HIS BED ON SITTING AT THE SIDE OF THE BED W/O COMPLICATION OR EMERGENCY. TRY TO EDUCATE THE PATIENT BUT PATIENT JUST LIKE TO ARGUE AND DENIES ABOUT HIS BEHAVIOR. CLEANSE RIGHT FOOT WITH NS, PADDED DRY WITH STERILE GAUZE, APPLIED HYDROGEL AND VENELEX, PACKED WITH IODOFORM, COVERED WITH FOAM, WRAP WITH GAUZE AND KERLIX WRAP. SECURITY STILL AT THE BEDSIDE.
[2022-02-26 15:37] VITALS: BP_SYST 128
[2022-02-26] MEDS: DAPTOmycin 500 MG in NS 50 ML IV SCH (15:38)
[2022-02-26] MEDS: LIDOCAINE JELLY 5 ML TUBE MM SCH (15:55)
--- NOTE | 2022-02-26 19:00 | NUR ---
CLOSING NOTES: PATIENT IS SITING AT THE SIDE OF THE BED TRYING TO EAT HIS LUNCH. HAS STILL BEEN PRESSING THE CALL LIGHT EVEN AFTER THE SECURITY LEFT HIS ROOM. CONSTANTLY YELLING FOR HELP WHICH IS NOT EMERGENCY FOR ATTENTION THEN ARGUES WITH THE NURSE AND DENIES WHAT HIS BEEN DOING. ALL NEEDS MET BUT NEVER SATISFIED. STABLE CONDITION AT THIS TIME. DRESSING TO THE R FOOT C/D/I. STILL NON COMPLIANT FROM GETTING R FOOT OFF THE GROUND AND DIET. Addendum: 02/27/22 at 0714 by [facility] BEAR Hough RN WRONG TIME 497
--- NOTE | 2022-02-26 19:19 | NUR ---
[facility]: CALLED (SPOKE WITH A FEMALE ) DUE TO PATIENT [facility] W/ POSSIBLE IV ON HIS RFA. WENT TO PATIENT ROOM TO MANAGER CLIENT SUPPORT HIS DINNER TRAY AROUND 190. NOTED PATIENT NOT IN THE BEDROOM OR IN THE BATHROOM. MADE ROUNDS AROUND THE STATION AND HALLWAYS. PATIENT CANNOT BE LOCATED. ASSESSED THE WHOLE ROOM FOR IV CATH INCLUDING BED AND THE TRASH CAN. NO IV CATH WAS FOUND. NOTED WOUND CARE SUPPLY (TREATMENT) WAS MISSING AT THE BEDSIDE AND PERSONAL BELONGINGS. GAVE DESCRIPTION TO TO LOCATE THE PATIENT BECAUSE WE DO NOT KNOW WHETHER HE STILL HAS AN IV ON HIM OR NOT. 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 MINING HELPER AM AND NIGHT AWARE. AND CHARGE NURSE RN AM AND NIGHT AWARE.
--- NOTE | 2022-02-26 20:36 | NUR ---
ATTEMPTED TO CALL DR HILTON: SPOKE WITH DR RASHEED AND STATED THAT DR HILTON SHOULD BE THE SMALL CRAFT OPERATOR FOR TONIGHT. ENDORSE TO NEXT SHIFT TO CALL DR HILTON REGARDING PATIENT ELOPEMENT. SHERIFF SHEPHERD WAS HERE AT THE NURSES STATION TO GET MORE INFO ON THE PATIENT WHO ELOPED.
== END 2022-02-26 18:18 | disposition left against medical advice (07) | DRG 720 ==
LOC: SED 01:45 → SMU 09:50
PROVIDERS: ADMIT General Practice; ATTEND General Practice
DX: A41.9 Sepsis, unspecified organism (principal); N17.0 Acute kidney failure with tubular necrosis; I50.43 Acute on chronic combined systolic (congestive) and diastolic (congestive) heart failure; E44.0 Moderate protein-calorie malnutrition; I42.0 Dilated cardiomyopathy; F12.10 Cannabis abuse, uncomplicated; F15.10 Other stimulant abuse, uncomplicated; E11.69 Type 2 diabetes mellitus with other specified complication; M86.8X7 Other osteomyelitis, ankle and foot; N39.0 Urinary tract infection, site not specified; I82.612 Acute embolism and thrombosis of superficial veins of left upper extremity; Z20.822 Contact with and (suspected) exposure to COVID-19; I13.0 Hypertensive heart and chronic kidney disease with heart failure and stage 1 through stage 4 chronic kidney disease, or unspecified chronic kidney disease; N18.4 Chronic kidney disease, stage 4 (severe); E11.22 Type 2 diabetes mellitus with diabetic chronic kidney disease; E11.51 Type 2 diabetes mellitus with diabetic peripheral angiopathy without gangrene; M19.011 Primary osteoarthritis, right shoulder; Z88.2 Allergy status to sulfonamides; Z88.8 Allergy status to other drugs, medicaments and biological substances; Z79.899 Other long term (current) drug therapy; Z59.00 Homelessness unspecified; Z91.14 Patient's other noncompliance with medication regimen; Z79.4 Long term (current) use of insulin; Z79.82 Long term (current) use of aspirin; Z79.84 Long term (current) use of oral hypoglycemic drugs; Z87.891 Personal history of nicotine dependence; Z89.431 Acquired absence of right foot; Z91.199 Patient's noncompliance with other medical treatment and regimen due to unspecified reason; Z68.29 Body mass index [BMI] 29.0-29.9, adult
CPT/HCPCS: 36415; 71045; 73030; 80048; 80053; 80307; 81000; 82962; 83036; 83605; 83735; 83880; 84484; 85025; 85610-TC; 85651-TC; 85730-TC; 87040; 87070-TC; 87086; 87186-TC; 93005; 93306; 93923; 93970; 93971; 96365; 96368; 99285; J0692; J0878; J1644; J1650; J1815; J1940; J2060; J2270; J2543; J3370; J3490; J7030; J7060